=== PATIENT | female | born 1985 | race Caucasian/White ===

== ENCOUNTER 2018-04-10 10:21 | Outpatient (CLI) | payer BC ==
[~2018-04-10] VITALS: Ht 175.3 cm; Wt 79.5 kg
[2018-04-10 11:07] VITALS: BP 136/78; PULSE 65; TEMP 99
[2018-04-10] MEDS ORDERED: PRENATAL (11:07)
[2018-04-10 11:51] LABS: BASO # 0.1 (0.0-0.2); BASO % 0.4 % (0.0-2.0); EOS % 0.1 % (0-4.0); GRAN # 8.7 (1.4-6.5); GRAN % 75.9 % (42.2-75.2); HEMOGLOBIN 12.5 g/dl (12.5-16.0); LYMPH # 2.1 (1.2-3.4); LYMPH % 18.4 % (20.0-51.0); MEAN CELL VOLUME 90 fl (80.0-100.0); MEAN CORPUSCULAR HEMOGLOBIN 32 pg (27.0-31.0); MEAN CORPUSCULAR HGB CONC 36 g/dl (33.0-37.0); MEAN PLATELET VOLUME 10.2 fl (7.4-10.4); MONO # 0.5 (0.1-0.6); MONO % 4.6 % (1.7-9.3); PLATELET COUNT 254 K/mm3 (130-400); REDCELL DISTRIBUTION WIDTH-CV 12.8 % (11.5-14.5)
[2018-04-10 12:00] VITALS: BP 136/78; PULSE 65; TEMP 99
[2018-04-10 12:04] LABS: PROTHROMBIN TIME 11.2 SECONDS (9.7-12.8)
== END 2018-04-10 12:30 | disposition short-term general hospital (02) ==
LOC: LDRO 10:21
PROVIDERS: Obstetrics & Gynecology
DX: O46.8X2 Other antepartum hemorrhage, second trimester (principal); Z3A.23 23 weeks gestation of pregnancy
CPT/HCPCS: J0702; J7120

== ENCOUNTER → 2020-11-27 | Outpatient (CLI) | payer BC ==
[~2020-11-27] MED LIST: MOTRIN 800800 MG/TAB PO; PERCOCET 325 MG1 TA2 PO; PRENATAL
== END ==
LOC: ZCOL.LAB
DX: Z20.822 Contact with and (suspected) exposure to COVID-19 (principal)

== ENCOUNTER 2020-11-29 18:01 | Outpatient (CLI) | payer BC ==
[~2020-11-29] VITALS: Ht 172.7 cm; Wt 91.4 kg
[~2020-11-29 18:01] MED LIST changes: -MOTRIN 800800 MG/TAB PO; -PERCOCET 325 MG1 TA2 PO
[2020-11-29 19:00] VITALS: BP 128/86; PULSE 77; TEMP 98.1
[2020-11-30] MEDS ORDERED: PERCOCET 325 MG1 TA2 PO (06:30)
[2020-11-30] MEDS ORDERED: MOTRIN 800800 MG/TAB PO (06:30)
== END 2020-11-29 19:33 | disposition home or self-care (01) ==
LOC: LDRO 18:01
DX: O36.8130 Decreased fetal movements, third trimester, not applicable or unspecified (principal); O41.93X0 Disorder of amniotic fluid and membranes, unspecified, third trimester, not applicable or unspecified; O26.899 Other specified pregnancy related conditions, unspecified trimester; M54.9 Dorsalgia, unspecified; Z3A.39 39 weeks gestation of pregnancy

== ENCOUNTER 2020-11-30 05:35 | Inpatient (IN) | payer BC ==
[2020-11-30] VITALS (18 sets, daily range): BP systolic 87–123; BP diastolic 45–77; PULSE 61–82; TEMP 98.1
[~2020-11-30] VITALS: Ht 172.7 cm; Wt 90.9 kg
--- NOTE | 2020-11-30 05:40 | NUR ---
G2L1 arrives to unit for scheduled section. Pt changed into gown, oriented to room, call light within reach, bed in low and locked position. US and toco explained and applied. Vital signs obtained. 18G IV started in left forearm, admission labs obtained off IV start. Lactated Ringers infusing.
[2020-11-30 06:23] LABS: BASO # 0.1 (0.0-0.2); BASO % 0.6 % (0.0-2.0); GRAN % 59.6 % (42.2-75.2); HEMOGLOBIN 12.4 g/dl (12.5-16.0); LYMPH # 2.7 (1.2-3.4); LYMPH % 32.4 % (20.0-51.0); MEAN CELL VOLUME 92 fl (80.0-100.0); MEAN CORPUSCULAR HEMOGLOBIN 32 pg (27.0-31.0); MEAN CORPUSCULAR HGB CONC 35 g/dl (33.0-37.0); MEAN PLATELET VOLUME 10.3 fl (7.4-10.4); MONO # 0.6 (0.1-0.6); PLATELET COUNT 238 K/mm3 (130-400)
[2020-11-30 06:24] LABS: HEMATOCRIT 35.8 % (37.0-47.0)
[2020-11-30] MEDS ORDERED: MOTRIN 800800 MG/TAB PO (06:30)
[2020-11-30] MEDS ORDERED: PERCOCET 325 MG1 TA2 PO (06:30)
[2020-12-01 01:00] VITALS: BP 121/64; PULSE 55; TEMP 98.4
[2020-12-01 05:00] VITALS: BP 123/80; PULSE 52; TEMP 97.4
[2020-12-01 07:45] VITALS: BP 117/63; PULSE 53; TEMP 97.5
--- NOTE | 2020-12-01 09:04 | NUR ---
Initial visit; Parents thanked [employer] for offering congratulations and God's blessings for the of their son. Feather Trimmer thanked family for choosing [facility].
[2020-12-01 15:39] VITALS: BP 120/77; PULSE 63; TEMP 97.6
[2020-12-01 20:10] VITALS: BP 132/82; PULSE 68; TEMP 98.4
[2020-12-02 07:30] VITALS: BP 129/77; PULSE 56; TEMP 97.7
== END 2020-12-02 13:50 | disposition home or self-care (01) | DRG 788 ==
LOC: OB
PROVIDERS: ADMIT Obstetrics & Gynecology
PROC: 10D00Z1 Extraction of Products of Conception, Low, Open Approach (ICD-10-PCS; principal; 2020-12-01)
DX: O34.211 Maternal care for low transverse scar from previous cesarean delivery (principal); Z3A.39 39 weeks gestation of pregnancy; Z37.0 Single live birth
CPT/HCPCS: J0690; J1885; J2370; J2405; J2590; J7120